=== PATIENT | male | born 2000 | race African-American/Black ===

== ENCOUNTER 2025-05-31 22:47 | Emergency (ER) | payer OTHER ==
[~2025-05-31] VITALS: Ht 180.3 cm; Wt 83.2 kg
[2025-05-31 23:19] LABS: BASO # 0.1 10^3/uL (0.0-0.2); BASO % 0.9 % (0.0-1.0); EOS # 0.1 10^3/uL (0.0-0.5); EOS % 1.3 % (0.0-3.0); LYMPH # 2.3 10^3/uL (1.5-5.0); LYMPH % 40.6 % (24.0-44.0); MONO # 0.5 10^3/uL (0.0-0.8); MONO % 8.8 % (2.0-8.0); NEUTROPHILS # 2.7 10^3/uL (1.5-8.5); NEUTROPHILS % 48.2 % (36.0-66.0); PLATELET COUNT, AUTOMATED 265 10^3/uL (150-450)
[2025-05-31 23:42] LABS: ALT/SGPT 16.0 U/L (7.0-40); AST/SGOT 17.0 U/L (<34); CALCIUM LEVEL 9.0 MG/DL (8.5-10.1); CARBON DIOXIDE LEVEL 27.0 MMOL/L (20-31); CHLORIDE LEVEL 103.0 MMOL/L (98-107); CK-MB VALUE MASS 1.1 NG/ML (<3.6); CPK CREATINE PHOSPHOKINASE 346.0 U/L (46-171); CREATININE FOR GFR 1.21 MG/DL (0.70-1.30); GLOMERULAR FILTRATION RATE 86.3 (>60); MB/CK RELATIVE INDEX 0.31 (< OR =4); POTASSIUM SERUM 4.1 MMOL/L (3.5-5.1); SODIUM LEVEL 140.0 MMOL/L (136-145)
[2025-06-01 01:06] LABS: CK-MB VALUE MASS 1.1 NG/ML (<3.6)
[2025-06-01 01:10] LABS: CPK CREATINE PHOSPHOKINASE 353.0 U/L (46-171); MB/CK RELATIVE INDEX 0.31 (< OR =4)
[2025-06-01 01:13] LABS: INR 0.87
[2025-06-01 02:53] LABS: MAGNESIUM LEVEL 2.0 MG/DL (1.8-2.4)
[2025-06-01 02:54] LABS: C REACTIVE PROTEIN QUANTITATIV < 0.50 MG/DL (<1.0)
[2025-06-01 02:55] LABS: CK-MB VALUE MASS < 1.0 NG/ML (<3.6)
[2025-06-01 02:58] LABS: CPK CREATINE PHOSPHOKINASE 338 U/L (46-171)
[2025-06-01] MEDS: IBUPROFEN 600 MG TAB PO ONE (03:05)
[2025-06-01] MEDS: COLCHICINE 0.6 MG TABLET PO ONE (03:05)
[2025-06-01] MEDS ORDERED: IBUP600T42 PO (04:21)
[2025-06-01] MEDS ORDERED: COLC0.6T53 PO (04:22)
[2025-06-01 04:45] VITALS: BP 154/72; TEMP 97.8; O2SAT 96
[2025-06-01 06:23] LABS: D-DIMER QUANT < 0.27 ug/mL (<0.5)
== END 2025-06-01 05:06 | disposition home or self-care (01) ==
LOC: M ED 22:47
DX: I30.9 Acute pericarditis, unspecified (principal); I44.0 Atrioventricular block, first degree; Z79.1 Long term (current) use of non-steroidal anti-inflammatories (NSAID)